=== PATIENT | female | born 1995 | race Caucasian/White ===

== ENCOUNTER 2025-02-16 16:42 | Emergency (ER) | payer BC, OTHER ==
[2025-02-16] MEDS ORDERED: Lidocaine 1% PF 5 ML VIAL ONE (17:48)
[2025-02-16] MEDS ORDERED: Boostrix 0.5 ML (Tdap) VIAL (>/=7 yrs of age) ONE (17:48)
[2025-02-16] MEDS ORDERED: Bacitracin 1 PK ONE (18:35)
== END 2025-02-16 18:31 | disposition home or self-care (01) ==
LOC: CSHERS 16:42
DX: S61.213A Laceration without foreign body of left middle finger without damage to nail, initial encounter (principal); Z23 Encounter for immunization; W26.0XXA Contact with knife, initial encounter; Y93.G3 Activity, cooking and baking
CPT/HCPCS: 12001; 90471; 90715